=== PATIENT | male | born 1965 | race Asian ===

== ENCOUNTER 2021-02-25 16:26 | Inpatient (IN) | payer OTHER ==
[~2021-02-25] VITALS: Ht 152.4 cm; Wt 59.5 kg
[~2021-02-25 16:26] MED LIST: AMLO5TAB66 PO; ATOR40TA71 PO; CLOP75TA60 PO; ETHA100 PO; FURO80 PO; INSU100I26 SQ; INSU100V SQ; ISON300 PO; PYRA500 PO; RIFA300 PO
[2021-02-25] MEDS ORDERED: 0.9% SODIUM CHLORIDE 10 ML SYRINGE IVP PRN (17:00)
[2021-02-25 17:12] LABS: GLUCOMETER DEV NAME(LOC) ERT.5; GLUCOSE,POINT OF CARE 50 MG/DL (70-110)
[2021-02-25] MEDS ORDERED: DEXTROSE 50%-WATER 25 GM/50 ML SYRINGE IVP ONE ×2 (17:15→18:45)
[2021-02-25 17:33] LABS: BASOPHILS % (AUTO) 0.5 % (0.0-2.0); EOSINOPHILS % (AUTO) 2.5 % (1.0-6.0); HEMATOCRIT 29.9 % (41-53); HEMOGLOBIN 9.6 g/dL (13.5-17.5); LYMPHOCYTES # (AUTO) 1.2 K/uL (1.0-4.8); LYMPHOCYTES % (AUTO) 9.3 % (22.0-44.0); MEAN CORPUSCULAR HEMOGLOBIN 35.4 pg (26.0-34.0); MEAN CORPUSCULAR VOLUME 111 fL (80-100); MONOCYTES # (AUTO) 1.4 K/uL (0.1-1.0); MONOCYTES % (AUTO) 11.1 % (2.0-9.0); NEUTROPHILS # (AUTO) 9.9 K/uL (1.8-7.7); NEUTROPHILS % (AUTO) 76.6 % (40.0-70.0); RED BLOOD CELL COUNT(AUTO) 2.71 MIL/uL (4.50-5.90); RED CELL DISTRIBUTION WIDTH 18.2 % (11.5-14.5)
[2021-02-25] MEDS ORDERED: FUROSEMIDE 40 MG/4 ML VIAL IVP ONE (17:45)
[2021-02-25 17:48] LABS: CALCIUM, TOTAL 9.7 mg/dL (8.8-10.5); CREATININE 7.07 mg/dL (0.60-1.30); POTASSIUM 5.8 mmol/L (3.5-5.1)
[2021-02-25 17:54] LABS: LACTIC ACID 1.6 mmol/L (0.4-2.0)
[2021-02-25 17:56] LABS: PROTHROMBIN TIME 10.6 SEC (9.4-11.6)
[2021-02-25 18:11] LABS: GLUCOMETER DEV NAME(LOC) ERT.5; GLUCOSE,POINT OF CARE 143 MG/DL (70-110)
[2021-02-25 18:13] LABS: ALBUMIN 2.4 g/dL (3.4-5.0)
[2021-02-25 18:14] LABS: PLATELET COUNT (AUTO) 457 K/uL (150-450)
[2021-02-25] MEDS ORDERED: CALCIUM GLUCONATE 100 MG/ML 10 ML IVP ONE (18:15)
[2021-02-25] MEDS ORDERED: SODIUM POLYSTYRENE SULFONATE 15 GM/60 ML SUSPENSION BOTTLE PO ONE (18:45)
[2021-02-25] MEDS ORDERED: ONDANSETRON HCL 4 MG/2 ML VIAL IVP PRN (18:45)
[2021-02-25] MEDS ORDERED: LEVOFLOXACIN 500 MG/D5% WATER 100 ML IV ONE (18:45)
[2021-02-25] MEDS ORDERED: ACETAMINOPHEN 325 MG TABLET PO PRN (18:45)
[2021-02-25] MEDS ORDERED: SODIUM ZIRCONIUM CYCLOSILICATE 5 GM POWDER PACKET PO ONE (18:45)
[2021-02-25 20:06] LABS: GLUCOSE,POINT OF CARE 60 MG/DL (70-110)
[2021-02-25 20:18] VITALS: BP 136/83
[2021-02-25 21:00] LABS: ABG A-A DIFF O2 16.4 mmHg (10-20.0); ABG BASE EXCESS -4.4 mmol/L (-2.0-3.0); ABG CARBOXYHEMOGLOBIN 0.1 % (0.0-1.5); ABG HCO3 21.1 mmol/L (22.0-26.0); ABG METHEMOGLOBIN 0.5 % (0.0-1.5); ABG OXYGEN CONTENT 10.7 mL/dL (15.0-23.0); ABG OXYGEN SATURATION 98.6 % (95.0-98.0); ABG PCO2 39 mmHg (35-45); ABG PH 7.351 (7.35-7.450); PO2, ARTERIAL BG 137.1 mmHg (84.0-92.0); SOURCE, BLOOD GAS ARTERIAL; TEMPERATURE, FAHRENHEIT, BG 98.3 FAHREN (96.0-98.6)
[2021-02-25] MEDS: FUROSEMIDE 80 MG TABLET PO SCH (21:00)
[2021-02-25 21:01] LABS: ABG TOTAL HEMOGLOBIN 7.5 G/dL (12.0-18.0); O2 DEVICE,BLOOD GAS 28 (ROOM AIR); SITE, BLOOD GAS LFT RADIAL
[2021-02-25] MEDS ORDERED: LACTULOSE 200 GM/300 ML RECTAL SOLUTION PR ONE (22:00)
[2021-02-25] MEDS ORDERED: LACTULOSE 20 GM/30 ML SOLUTION UDCUP PO ONE (22:30)
[2021-02-26] VITALS: BP 135/69
[2021-02-26 00:13] LABS: CALCIUM, TOTAL 8.7 mg/dL (8.8-10.5); CREATININE 7.46 mg/dL (0.60-1.30); POTASSIUM 5.3 mmol/L (3.5-5.1)
[2021-02-26] MEDS: DEXTROSE 50%-WATER 25 GM/50 ML SYRINGE IVP PRN ×2 (00:33→01:46)
[2021-02-26] MEDS: HEPARIN SODIUM,PORCINE 5,000 UNITS/ML VIAL SQ SCH ×3 (03:25→16:00)
[2021-02-26] MEDS ORDERED: SODIUM CHLORIDE 0.9% 250 ML IV ONE (04:47)
[2021-02-26 04:55] VITALS: BP 155/75
[2021-02-26] MEDS: PIPERACILLIN SODIUM/TAZOBACTAM 2.25 GM in DEXTROSE 5%-WATER 50 ML IV SCH ×4 (04:58→20:04)
[2021-02-26] MEDS ORDERED: DEXTROSE 5%-0.9% SODIUM CHL 1,000 ML IV SCH (06:30)
[2021-02-26 06:37] LABS: BASOPHILS % (AUTO) 1.2 % (0.0-2.0); EOSINOPHILS % (AUTO) 3.6 % (1.0-6.0); HEMATOCRIT 25.8 % (41-53); HEMOGLOBIN 8.4 g/dL (13.5-17.5); LYMPHOCYTES # (AUTO) 0.6 K/uL (1.0-4.8); LYMPHOCYTES % (AUTO) 8.1 % (22.0-44.0); MEAN CORPUSCULAR HEMOGLOBIN 35.6 pg (26.0-34.0); MEAN CORPUSCULAR HGB CONC 32.5 G/dL (31.0-37.0); MEAN CORPUSCULAR VOLUME 110 fL (80-100); MONOCYTES # (AUTO) 1.1 K/uL (0.1-1.0); NEUTROPHILS # (AUTO) 5.7 K/uL (1.8-7.7); NEUTROPHILS % (AUTO) 73.1 % (40.0-70.0); PLATELET COUNT (AUTO) 345 K/uL (150-450); RED BLOOD CELL COUNT(AUTO) 2.35 MIL/uL (4.50-5.90); RED CELL DISTRIBUTION WIDTH 18.3 % (11.5-14.5)
[2021-02-26 07:10] VITALS: BP 139/77
[2021-02-26 07:24] LABS: CALCIUM, TOTAL 8.5 mg/dL (8.8-10.5); CREATININE 4.28 mg/dL (0.60-1.30); MAGNESIUM 2.4 mg/dL (1.80-2.40)
[2021-02-26] MEDS: ATORVASTATIN CALCIUM 40 MG TABLET PO SCH (09:16)
[2021-02-26] MEDS: AmLODIPine BESYLATE 5 MG TABLET PO SCH (09:16)
[2021-02-26] MEDS: ISONIAZID 300 MG TABLET PO SCH (09:16)
[2021-02-26] MEDS: CLOPIDOGREL BISULFATE 75 MG TABLET PO SCH (09:16)
[2021-02-26] MEDS: RIFAMPIN 300 MG CAPSULE PO SCH (09:17)
[2021-02-26] MEDS: FUROSEMIDE 80 MG TABLET PO SCH ×2 (09:17→20:03)
[2021-02-26] MEDS: ETHAMBUTOL HCL 100 MG TABLET PO SCH (09:17)
[2021-02-26] MEDS ORDERED: SODIUM CHLORIDE 154 MEQ in DEXTROSE 10%-WATER 1,000 ML IV SCH (11:00)
[2021-02-26] MEDS ORDERED: DEXTROSE 50%-WATER 25 GM/50 ML SYRINGE IVP ONE (11:00)
[2021-02-26] MEDS ORDERED: DEXTROSE 10%-WATER 1,000 ML IV ONE (11:15)
[2021-02-26 11:24] LABS: GLUCOMETER DEV NAME(LOC) 5N.3; GLUCOSE,POINT OF CARE 58 MG/DL (70-110)
[2021-02-26 14:52] LABS: CALCIUM, TOTAL 8.2 mg/dL (8.8-10.5); CREATININE 4.88 mg/dL (0.60-1.30); POTASSIUM 4.9 mmol/L (3.5-5.1)
[2021-02-26 15:54] VITALS: BP 110/55
[2021-02-26 17:16] LABS: GLUCOMETER DEV NAME(LOC) 5S.2B; GLUCOSE,POINT OF CARE 61 MG/DL (70-110)
[2021-02-26 17:16] LABS: GLUCOMETER DEV NAME(LOC) 5S.2B; GLUCOSE,POINT OF CARE 170 MG/DL (70-110)
[2021-02-26 17:16] LABS: GLUCOMETER DEV NAME(LOC) 5S.2B; GLUCOSE,POINT OF CARE 102 MG/DL (70-110)
[2021-02-26 17:16] LABS: GLUCOMETER DEV NAME(LOC) 5S.2B; GLUCOSE,POINT OF CARE 151 MG/DL (70-110)
[2021-02-26 17:16] LABS: GLUCOMETER DEV NAME(LOC) 5S.2B; GLUCOSE,POINT OF CARE 61 MG/DL (70-110)
[2021-02-26 17:16] LABS: GLUCOMETER DEV NAME(LOC) 5S.2B; GLUCOSE,POINT OF CARE 115 MG/DL (70-110)
[2021-02-26 17:16] LABS: GLUCOMETER DEV NAME(LOC) 5S.2B; GLUCOSE,POINT OF CARE 73 MG/DL (70-110)
[2021-02-26 20:04] VITALS: BP 138/69
[2021-02-26 21:49] LABS: GLUCOMETER DEV NAME(LOC) 5N.1C; GLUCOSE,POINT OF CARE 101 MG/DL (70-110)
[2021-02-26 21:50] LABS: GLUCOMETER DEV NAME(LOC) 5N.1C; GLUCOSE,POINT OF CARE 150 MG/DL (70-110)
[2021-02-26 21:50] LABS: GLUCOMETER DEV NAME(LOC) 5N.1C; GLUCOSE,POINT OF CARE 120 MG/DL (70-110)
[2021-02-26 21:50] LABS: GLUCOMETER DEV NAME(LOC) 5N.1C; GLUCOSE,POINT OF CARE 154 MG/DL (70-110)
[2021-02-26 21:50] LABS: GLUCOMETER DEV NAME(LOC) 5N.1C; GLUCOSE,POINT OF CARE 185 MG/DL (70-110)
[2021-02-26 21:50] LABS: GLUCOMETER DEV NAME(LOC) 5N.1C; GLUCOSE,POINT OF CARE 123 MG/DL (70-110)
[2021-02-27] VITALS (7 sets, daily range): BP systolic 108–124; BP diastolic 56–78
[2021-02-27] MEDS: PIPERACILLIN SODIUM/TAZOBACTAM 2.25 GM in DEXTROSE 5%-WATER 50 ML IV SCH (04:06)
[2021-02-27 05:41] LABS: GLUCOMETER DEV NAME(LOC) 5S.1; GLUCOSE,POINT OF CARE 118 MG/DL (70-110)
[2021-02-27 05:41] LABS: GLUCOMETER DEV NAME(LOC) 5S.1; GLUCOSE,POINT OF CARE 154 MG/DL (70-110)
[2021-02-27 05:41] LABS: GLUCOMETER DEV NAME(LOC) 5S.1; GLUCOSE,POINT OF CARE 111 MG/DL (70-110)
[2021-02-27 07:19] LABS: BAND NEUTROPHILS % (MANUAL) 0 % (0-5)
[2021-02-27 07:22] LABS: HEMATOCRIT 24.9 % (41-53); HEMOGLOBIN 8.2 g/dL (13.5-17.5); MEAN CORPUSCULAR HEMOGLOBIN 35.8 pg (26.0-34.0); MEAN CORPUSCULAR HGB CONC 32.7 G/dL (31.0-37.0); MEAN CORPUSCULAR VOLUME 109 fL (80-100); PLATELET COUNT (AUTO) 348 K/uL (150-450); RED BLOOD CELL COUNT(AUTO) 2.28 MIL/uL (4.50-5.90); RED CELL DISTRIBUTION WIDTH 17.3 % (11.5-14.5)
[2021-02-27] MEDS: HEPARIN SODIUM,PORCINE 5,000 UNITS/ML VIAL SQ SCH ×3 (08:00→16:18)
[2021-02-27 08:13] LABS: CALCIUM, TOTAL 8.6 mg/dL (8.8-10.5); CREATININE 6.12 mg/dL (0.60-1.30); POTASSIUM 5.2 mmol/L (3.5-5.1)
[2021-02-27] MEDS ORDERED: SODIUM CHLORIDE 0.9% 1,000 ML ONE (08:36)
[2021-02-27] MEDS: AmLODIPine BESYLATE 5 MG TABLET PO SCH (09:00)
[2021-02-27 09:23] LABS: LYMPHOCYTES % (MANUAL) 12 % (22-44); MONOCYTES % (MANUAL) 10 % (2-9); SEGMENTED NEUTROPHILS % 78 % (40-70)
[2021-02-27] MEDS ORDERED: PYRI-12 PO (11:05)
[2021-02-27] MEDS ORDERED: ROPI4TAB6 PO (11:05)
[2021-02-27] MEDS ORDERED: PROPOFOL 1% 20 ML VIAL IVP ONE (12:00)
[2021-02-27] MEDS: ATORVASTATIN CALCIUM 40 MG TABLET PO SCH (12:25)
[2021-02-27] MEDS: PYRAZINAMIDE 500 MG TABLET PO SCH (12:25)
[2021-02-27] MEDS: PYRIDOXINE HCL 50 MG TABLET PO SCH (12:25)
[2021-02-27] MEDS: CLOPIDOGREL BISULFATE 75 MG TABLET PO SCH (12:25)
[2021-02-27] MEDS: ETHAMBUTOL HCL 100 MG TABLET PO SCH (12:25)
[2021-02-27] MEDS: RIFAMPIN 300 MG CAPSULE PO SCH (12:25)
[2021-02-27] MEDS: FUROSEMIDE 80 MG TABLET PO SCH ×2 (12:25→20:16)
[2021-02-27] MEDS: ISONIAZID 300 MG TABLET PO SCH (12:25)
[2021-02-27] MEDS ORDERED: VANCOMYCIN HCL 750 MG in DEXTROSE 5%-WATER 250 ML IV PRN (18:00)
[2021-02-27] MEDS ORDERED: SODIUM CHLORIDE 0.9% 250 ML IV ONE (18:50)
[2021-02-27] MEDS ORDERED: SODIUM POLYSTYRENE SULFONATE 15 GM/60 ML SUSPENSION BOTTLE PO ONE (20:00)
[2021-02-27] MEDS ORDERED: MELATONIN 3 MG TABLET PO PRN (20:45)
[2021-02-27] MEDS: INSULIN LISPRO 100 UNITS/ML SQ PRN (22:55)
[2021-02-28] MEDS: HEPARIN SODIUM,PORCINE 5,000 UNITS/ML VIAL SQ SCH ×2 (01:20→08:00)
[2021-02-28 02:31] LABS: GLUCOMETER DEV NAME(LOC) 5S.2B; GLUCOSE,POINT OF CARE 124 MG/DL (70-110)
[2021-02-28 02:31] LABS: GLUCOMETER DEV NAME(LOC) 5S.2B; GLUCOSE,POINT OF CARE 86 MG/DL (70-110)
[2021-02-28 02:31] LABS: GLUCOMETER DEV NAME(LOC) 5S.2B; GLUCOSE,POINT OF CARE 203 MG/DL (70-110)
[2021-02-28 02:31] LABS: GLUCOMETER DEV NAME(LOC) 5S.2B; GLUCOSE,POINT OF CARE 89 MG/DL (70-110)
[2021-02-28 04:53] LABS: GLUCOMETER DEV NAME(LOC) 5S.1; GLUCOSE,POINT OF CARE 129 MG/DL (70-110)
[2021-02-28 04:53] LABS: GLUCOMETER DEV NAME(LOC) 5S.1; GLUCOSE,POINT OF CARE 134 MG/DL (70-110)
[2021-02-28 04:59] VITALS: BP 146/88
[2021-02-28 05:31] LABS: GLUCOMETER DEV NAME(LOC) 5S.2B; GLUCOSE,POINT OF CARE 142 MG/DL (70-110)
[2021-02-28 06:07] LABS: GLUCOMETER DEV NAME(LOC) 5N.1C; GLUCOSE,POINT OF CARE 103 MG/DL (70-110)
[2021-02-28 07:11] LABS: CALCIUM, TOTAL 8.5 mg/dL (8.8-10.5); CREATININE 4.31 mg/dL (0.60-1.30); MAGNESIUM 2.3 mg/dL (1.80-2.40); POTASSIUM 4.9 mmol/L (3.5-5.1)
[2021-02-28 07:37] VITALS: BP 127/75
[2021-02-28 08:06] LABS: FREE KAPPA LIGHT CHAINS,S 369.7 mg/L (3.3-19.4); FREE KAPPA/LAMBDA LT CHN RATIO 1.09 (0.26-1.65)
[2021-02-28] MEDS ORDERED: LOPERAMIDE HCL 2 MG CAPSULE PO ONE (09:00)
[2021-02-28] MEDS ORDERED: -POST HEMODIALYSIS NOTE- MISC SCH (09:00)
[2021-02-28] MEDS: FUROSEMIDE 80 MG TABLET PO SCH ×2 (09:05→21:07)
[2021-02-28] MEDS: ISONIAZID 300 MG TABLET PO SCH (09:05)
[2021-02-28] MEDS: AmLODIPine BESYLATE 5 MG TABLET PO SCH (09:06)
[2021-02-28] MEDS: ATORVASTATIN CALCIUM 40 MG TABLET PO SCH (09:06)
[2021-02-28] MEDS: ETHAMBUTOL HCL 100 MG TABLET PO SCH (09:06)
[2021-02-28] MEDS: RIFAMPIN 300 MG CAPSULE PO SCH (09:07)
[2021-02-28] MEDS: PYRIDOXINE HCL 50 MG TABLET PO SCH (09:07)
[2021-02-28] MEDS: CLOPIDOGREL BISULFATE 75 MG TABLET PO SCH (09:07)
[2021-02-28 09:25] LABS: BASOPHILS % (AUTO) 3.4 % (0.0-2.0); EOSINOPHILS % (AUTO) 3.6 % (1.0-6.0); HEMATOCRIT 25.1 % (41-53); HEMOGLOBIN 8.2 g/dL (13.5-17.5); LYMPHOCYTES % (AUTO) 13.4 % (22.0-44.0); MEAN CORPUSCULAR HGB CONC 32.8 G/dL (31.0-37.0); MEAN CORPUSCULAR VOLUME 110 fL (80-100); MONOCYTES # (AUTO) 1.2 K/uL (0.1-1.0); MONOCYTES % (AUTO) 16.1 % (2.0-9.0); NEUTROPHILS # (AUTO) 4.9 K/uL (1.8-7.7); NEUTROPHILS % (AUTO) 63.5 % (40.0-70.0); PLATELET COUNT (AUTO) 392 K/uL (150-450); RED BLOOD CELL COUNT(AUTO) 2.29 MIL/uL (4.50-5.90); RED CELL DISTRIBUTION WIDTH 17.4 % (11.5-14.5)
[2021-02-28 09:28] LABS: GLUCOMETER DEV NAME(LOC) 5S.2B; GLUCOSE,POINT OF CARE 113 MG/DL (70-110)
[2021-02-28 10:24] VITALS: BP 147/90
[2021-02-28] MEDS: INSULIN LISPRO 100 UNITS/ML SQ PRN ×3 (11:23→21:10)
[2021-02-28 12:03] LABS: GLUCOMETER DEV NAME(LOC) 5S.2B; GLUCOSE,POINT OF CARE 171 MG/DL (70-110)
[2021-02-28 15:31] VITALS: BP 132/81
[2021-02-28] MEDS: METOPROLOL TARTRATE 25 MG TABLET PO SCH ×2 (15:37→21:08)
[2021-02-28 17:46] LABS: GLUCOMETER DEV NAME(LOC) 5S.2B; GLUCOSE,POINT OF CARE 181 MG/DL (70-110)
[2021-02-28 19:30] VITALS: BP 141/84
[2021-02-28 23:43] VITALS: BP 117/74
[2021-03-01 04:10] VITALS: BP 128/72
[2021-03-01] MEDS: INSULIN LISPRO 100 UNITS/ML SQ PRN ×3 (05:57→22:04)
[2021-03-01 05:59] LABS: BASOPHILS % (AUTO) 1.3 % (0.0-2.0); EOSINOPHILS % (AUTO) 2.8 % (1.0-6.0); HEMATOCRIT 22.9 % (41-53); HEMOGLOBIN 7.5 g/dL (13.5-17.5); LYMPHOCYTES # (AUTO) 0.7 K/uL (1.0-4.8); LYMPHOCYTES % (AUTO) 8.3 % (22.0-44.0); MEAN CORPUSCULAR HEMOGLOBIN 36.3 pg (26.0-34.0); MEAN CORPUSCULAR HGB CONC 32.8 G/dL (31.0-37.0); MEAN CORPUSCULAR VOLUME 111 fL (80-100); MONOCYTES # (AUTO) 1.1 K/uL (0.1-1.0); MONOCYTES % (AUTO) 13.5 % (2.0-9.0); NEUTROPHILS % (AUTO) 74.1 % (40.0-70.0); PLATELET COUNT (AUTO) 359 K/uL (150-450); RED BLOOD CELL COUNT(AUTO) 2.07 MIL/uL (4.50-5.90); RED CELL DISTRIBUTION WIDTH 17.4 % (11.5-14.5)
[2021-03-01 06:11] LABS: CALCIUM, TOTAL 8.7 mg/dL (8.8-10.5); CREATININE 5.88 mg/dL (0.60-1.30); MAGNESIUM 2.3 mg/dL (1.80-2.40); POTASSIUM 4.4 mmol/L (3.5-5.1)
[2021-03-01 07:44] VITALS: BP 117/66
[2021-03-01] MEDS: PYRAZINAMIDE 500 MG TABLET PO SCH (08:40)
[2021-03-01] MEDS: ATORVASTATIN CALCIUM 40 MG TABLET PO SCH (08:40)
[2021-03-01] MEDS: CLOPIDOGREL BISULFATE 75 MG TABLET PO SCH (08:40)
[2021-03-01] MEDS: METOPROLOL TARTRATE 25 MG TABLET PO SCH ×2 (08:40→22:12)
[2021-03-01] MEDS: ETHAMBUTOL HCL 100 MG TABLET PO SCH (08:41)
[2021-03-01] MEDS: ISONIAZID 300 MG TABLET PO SCH (08:41)
[2021-03-01] MEDS: FUROSEMIDE 80 MG TABLET PO SCH ×2 (08:41→22:11)
[2021-03-01] MEDS: RIFAMPIN 300 MG CAPSULE PO SCH (08:42)
[2021-03-01] MEDS: PYRIDOXINE HCL 50 MG TABLET PO SCH (08:42)
[2021-03-01] MEDS ORDERED: EPOETIN ALFA 10,000 UNITS/ML VIAL SQ SCH (09:00)
[2021-03-01 11:51] VITALS: BP 106/60
[2021-03-01 13:17] LABS: ALBUMIN 1.8 g/dL (3.4-5.0); BILIRUBIN,DIRECT 0.4 mg/dL (0.00-0.20); BILIRUBIN,TOTAL 0.6 mg/dL (0.1-1.0); TOTAL PROTEIN, SERUM 7.6 g/dL (6.4-8.2)
[2021-03-01] MEDS ORDERED: SODIUM CHLORIDE 0.9% 2,000 ML ONE (14:50)
[2021-03-01 15:53] VITALS: BP 120/80
[2021-03-01 17:16] LABS: GLUCOMETER DEV NAME(LOC) 5S.2B; GLUCOSE,POINT OF CARE 89 MG/DL (70-110)
[2021-03-01 17:16] LABS: GLUCOMETER DEV NAME(LOC) 5S.2B; GLUCOSE,POINT OF CARE 183 MG/DL (70-110)
[2021-03-01 17:16] LABS: GLUCOMETER DEV NAME(LOC) 5S.2B; GLUCOSE,POINT OF CARE 179 MG/DL (70-110)
[2021-03-01 19:42] VITALS: BP 134/87
[2021-03-01 22:36] LABS: GLUCOMETER DEV NAME(LOC) 5N.1C; GLUCOSE,POINT OF CARE 155 MG/DL (70-110)
[2021-03-01] MEDS ORDERED: LOPERAMIDE HCL 2 MG CAPSULE PO ONE (23:30)
[2021-03-01 23:35] VITALS: BP 114/64
[2021-03-02 01:54] LABS: GLUCOMETER DEV NAME(LOC) 5S.1; GLUCOSE,POINT OF CARE 248 MG/DL (70-110)
[2021-03-02 04:51] VITALS: BP 124/76
[2021-03-02] MEDS: INSULIN LISPRO 100 UNITS/ML SQ PRN ×3 (05:50→20:23)
[2021-03-02 06:29] LABS: BASOPHILS % (AUTO) 1.9 % (0.0-2.0); EOSINOPHILS % (AUTO) 4.2 % (1.0-6.0); HEMATOCRIT 23.6 % (41-53); HEMOGLOBIN 7.7 g/dL (13.5-17.5); LYMPHOCYTES # (AUTO) 0.7 K/uL (1.0-4.8); LYMPHOCYTES % (AUTO) 9.3 % (22.0-44.0); MEAN CORPUSCULAR HEMOGLOBIN 36.2 pg (26.0-34.0); MEAN CORPUSCULAR HGB CONC 32.7 G/dL (31.0-37.0); MEAN CORPUSCULAR VOLUME 111 fL (80-100); MONOCYTES # (AUTO) 1.2 K/uL (0.1-1.0); MONOCYTES % (AUTO) 15.5 % (2.0-9.0); NEUTROPHILS # (AUTO) 5.3 K/uL (1.8-7.7); NEUTROPHILS % (AUTO) 69.1 % (40.0-70.0); PLATELET COUNT (AUTO) 328 K/uL (150-450); RED BLOOD CELL COUNT(AUTO) 2.13 MIL/uL (4.50-5.90); RED CELL DISTRIBUTION WIDTH 17.6 % (11.5-14.5)
[2021-03-02 06:53] LABS: CALCIUM, TOTAL 8.5 mg/dL (8.8-10.5); CREATININE 3.64 mg/dL (0.60-1.30); POTASSIUM 4.2 mmol/L (3.5-5.1)
[2021-03-02 08:22] VITALS: BP 127/71
[2021-03-02] MEDS: ATORVASTATIN CALCIUM 40 MG TABLET PO SCH (08:28)
[2021-03-02] MEDS: METOPROLOL TARTRATE 25 MG TABLET PO SCH ×2 (08:28→20:21)
[2021-03-02] MEDS: CLOPIDOGREL BISULFATE 75 MG TABLET PO SCH (08:28)
[2021-03-02] MEDS: ETHAMBUTOL HCL 100 MG TABLET PO SCH (08:29)
[2021-03-02] MEDS: ISONIAZID 300 MG TABLET PO SCH (08:29)
[2021-03-02] MEDS: FUROSEMIDE 80 MG TABLET PO SCH ×2 (08:29→20:21)
[2021-03-02] MEDS: RIFAMPIN 300 MG CAPSULE PO SCH (08:30)
[2021-03-02] MEDS: PYRIDOXINE HCL 50 MG TABLET PO SCH (08:30)
[2021-03-02] MEDS ORDERED: OMEP20 PO (12:42)
[2021-03-02] MEDS ORDERED: METO25 PO (12:42)
[2021-03-02 13:19] VITALS: BP 133/82
[2021-03-02] MEDS ORDERED: RIFAMPIN 300 MG CAPSULE PO ONE (15:30)
[2021-03-02] MEDS ORDERED: PYRAZINAMIDE 500 MG TABLET PO ONE (15:45)
[2021-03-02] MEDS ORDERED: ETHAMBUTOL HCL 400 MG TABLET PO ONE (15:45)
[2021-03-02 16:27] VITALS: BP 117/79
[2021-03-02 17:23] LABS: GLUCOMETER DEV NAME(LOC) 5N.3; GLUCOSE,POINT OF CARE 220 MG/DL (70-110)
[2021-03-02 18:42] LABS: GLUCOMETER DEV NAME(LOC) 5N.1C; GLUCOSE,POINT OF CARE 79 MG/DL (70-110)
[2021-03-02 18:42] LABS: GLUCOMETER DEV NAME(LOC) 5S.1; GLUCOSE,POINT OF CARE 231 MG/DL (70-110)
[2021-03-02 19:05] VITALS: BP 139/70
[2021-03-03 01:19] LABS: GLUCOMETER DEV NAME(LOC) 5S.1; GLUCOSE,POINT OF CARE 162 MG/DL (70-110)
[2021-03-03] MEDS ORDERED: RIFAMPIN 300 MG CAPSULE PO SCH (09:00)
[2021-03-04] MEDS ORDERED: ETHAMBUTOL HCL 400 MG TABLET PO SCH (09:00)
[2021-03-04] MEDS ORDERED: PYRAZINAMIDE 500 MG TABLET PO SCH (09:00)
== END 2021-03-02 21:45 | disposition home health service (06) | DRG 720 ==
LOC: EMS 16:26 → 5S 18:45
PROVIDERS: ADMIT Internal Medicine; ATTEND Internal Medicine
PROC: 5A1D70Z Performance of Urinary Filtration, Intermittent, Less than 6 Hours Per Day (ICD-10-PCS; 2021-02-25)
PROC: 0DB68ZX Excision of Stomach, Via Natural or Artificial Opening Endoscopic, Diagnostic (ICD-10-PCS; 2021-02-27)
PROC: 5A1D70Z Performance of Urinary Filtration, Intermittent, Less than 6 Hours Per Day (ICD-10-PCS; 2021-02-27)
PROC: 0DB28ZX Excision of Middle Esophagus, Via Natural or Artificial Opening Endoscopic, Diagnostic (ICD-10-PCS; principal; 2021-02-27 09:30)
PROC: 5A1D70Z Performance of Urinary Filtration, Intermittent, Less than 6 Hours Per Day (ICD-10-PCS; 2021-03-01)
PROC: 5A1D70Z Performance of Urinary Filtration, Intermittent, Less than 6 Hours Per Day (ICD-10-PCS; 2021-03-02)
DX: A41.9 Sepsis, unspecified organism (principal); G93.41 Metabolic encephalopathy; I13.2 Hypertensive heart and chronic kidney disease with heart failure and with stage 5 chronic kidney disease, or end stage renal disease; J96.11 Chronic respiratory failure with hypoxia; I27.20 Pulmonary hypertension, unspecified; N18.6 End stage renal disease; I50.43 Acute on chronic combined systolic (congestive) and diastolic (congestive) heart failure; E87.1 Hypo-osmolality and hyponatremia; E11.51 Type 2 diabetes mellitus with diabetic peripheral angiopathy without gangrene; K29.70 Gastritis, unspecified, without bleeding; K44.9 Diaphragmatic hernia without obstruction or gangrene; E11.22 Type 2 diabetes mellitus with diabetic chronic kidney disease; D63.8 Anemia in other chronic diseases classified elsewhere; A15.0 Tuberculosis of lung; D63.1 Anemia in chronic kidney disease; E11.649 Type 2 diabetes mellitus with hypoglycemia without coma; E78.5 Hyperlipidemia, unspecified; E87.5 Hyperkalemia; I25.5 Ischemic cardiomyopathy; I25.10 Atherosclerotic heart disease of native coronary artery without angina pectoris; Z99.2 Dependence on renal dialysis; Z95.1 Presence of aortocoronary bypass graft; Z95.810 Presence of automatic (implantable) cardiac defibrillator; Z82.49 Family history of ischemic heart disease and other diseases of the circulatory system; Z87.891 Personal history of nicotine dependence
CPT/HCPCS: 36600; 70450; 71045; 71250; 80048; 80053; 80076; 82140; 82271; 82550; 82805; 82962; 83605; 83735; 83880; 83883; 84155; 84165; 84484; 85007; 85018; 85025; 85027; 85610; 85730; 87040; 87081; 87340; 88305; 88312; 88313; 89055; 93005; 93306; 97161; 99291; A9575; J0610; J0885; J1644; J1940; J1956; J2543; J2704; J3370; J7030; J7042; J7050; J7060; J7131; 36415-L1; 36415-TC

== ENCOUNTER 2021-06-07 12:44 | Emergency (ER) | payer OTHER ==
[~2021-06-07] VITALS: Ht 170.2 cm; Wt 65.0 kg
[~2021-06-07 12:44] MED LIST changes: +EPOE10003 SQ; +LEVO-72 PO; +METO25 PO; +OMEP20 PO; +PREDAOS OU; +PYRI-12 PO; +ROPI4TAB6 PO; +SEVE800T17 PO
[2021-06-07 13:08] VITALS: BP 130/73
== END 2021-06-07 15:07 | disposition home or self-care (01) ==
LOC: EMS 12:44
DX: R09.02 Hypoxemia (principal); I11.0 Hypertensive heart disease with heart failure; I50.9 Heart failure, unspecified; I25.10 Atherosclerotic heart disease of native coronary artery without angina pectoris
CPT/HCPCS: 99283; Z7502